=== PATIENT | male | born 1935 | race Caucasian/White ===

== ENCOUNTER 2021-11-24 23:55 | Emergency (ER) | payer MEDICARE ==
[~2021-11-24] VITALS: Ht 170.2 cm; Wt 79.5 kg
--- NOTE | 2021-11-25 00:18 | NUR ---
ASSUMED CARE OF PT. PT ROOMED IN BED 3.
--- NOTE | 2021-11-25 00:23 | NUR ---
CXR IN ROOM
[2021-11-25 01:11] LABS: BASOPHILS # (AUTO) 0.1 X10'3 (0-0.2); EOSINOPHILS # (AUTO) 0.3 X10'3 (0-0.9); HEMATOCRIT 38.2 % (42.0-52.0); HEMOGLOBIN 13.1 g/dl (14.0-17.9); LYMPHOCYTES # (AUTO) 2.4 X10'3 (1.1-4.8); LYMPHOCYTES % (AUTO) 36.5 % (21-51); MEAN CORPUSCULAR HEMOGLOBIN 31.9 PG (27.0-31.0); MEAN CORPUSCULAR HGB CONC 34.3 g/dL (33.0-36.5); MEAN CORPUSCULAR VOLUME 93.1 FL (78-98); MEAN PLATELET VOLUME 8.2 FL (7.4-10.4); MONOCYTES # (AUTO) 0.7 X10'3 (0-0.9); MONOCYTES % (AUTO) 11.1 % (2-12); NEUTROPHILS # (AUTO) 3.1 X10'3 (1.8-7.7); NEUTROPHILS % (AUTO) 47.4 % (42-75); PLATELET COUNT 226 X10'3 (140-440); RED BLOOD COUNT 4.11 X10'6 (4.70-6.10); WHITE BLOOD COUNT 6.5 X10'3 (4.5-11.0)
[2021-11-25 01:25] LABS: ALANINE AMINOTRANSFERASE 21 U/L (12-78); ALBUMIN 3.6 G/DL (3.4-5.0); ALBUMIN/GLOBULIN RATIO 1.1 (1.1-1.5); ALKALINE PHOSPHATASE 60 IU/L (46-116); ANION GAP 6 (8-16); ASPARTATE AMINO TRANSFERASE 14 U/L (10-37); BILIRUBIN,TOTAL 0.4 MG/DL (0.1-1.0); BLOOD UREA NITROGEN 23 MG/DL (7-18); CALCIUM 8.9 MG/DL (8.5-10.1); CHLORIDE 105 MMOL/L (99-107); CREATININE 1.35 MG/DL (0.60-1.10); GLUCOSE 100 MG/DL (70-104); POTASSIUM 4.8 MMOL/L (3.5-5.1); SODIUM 139 MMOL/L (135-145); TOTAL CARBON DIOXIDE 28.2 MMOL/L (24-32); TOTAL PROTEIN 6.9 G/DL (6.4-8.2); eGFR 50 ML/MIN
[2021-11-25 02:01] VITALS: BP 136/62
== END 2021-11-25 02:04 | disposition home or self-care (01) ==
LOC: ER 23:55
DX: I10 Essential (primary) hypertension (principal)
CPT/HCPCS: 36415; 71045; 80053; 83880; 84443; 84484; 85025; 93005; 99285

== ENCOUNTER 2022-12-14 05:57 | Day surgery (SDC) | payer MEDICARE ==
[2022-12-13 11:54] LABS: BASOPHILS # (AUTO) 0.1 X10'3 (0-0.2); BASOPHILS % (AUTO) 0.9 % (0-1); EOSINOPHILS # (AUTO) 0.1 X10'3 (0-0.9); EOSINOPHILS % (AUTO) 1.3 % (0-6); HEMATOCRIT 40.6 % (42.0-52.0); HEMOGLOBIN 13.6 g/dl (14.0-17.9); LYMPHOCYTES # (AUTO) 2.3 X10'3 (1.1-4.8); LYMPHOCYTES % (AUTO) 31.9 % (21-51); MEAN CORPUSCULAR HEMOGLOBIN 31.4 PG (27.0-31.0); MEAN CORPUSCULAR HGB CONC 33.4 g/dL (33.0-36.5); MEAN CORPUSCULAR VOLUME 93.9 FL (78-98); MEAN PLATELET VOLUME 8.6 FL (7.4-10.4); MONOCYTES # (AUTO) 0.5 X10'3 (0-0.9); MONOCYTES % (AUTO) 7.1 % (2-12); NEUTROPHILS # (AUTO) 4.2 X10'3 (1.8-7.7); NEUTROPHILS % (AUTO) 58.8 % (42-75); PLATELET COUNT 224 X10'3 (140-440); RED BLOOD COUNT 4.32 X10'6 (4.70-6.10); RED CELL DISTRIBUTION WIDTH 13.7 % (11.5-14.5); WHITE BLOOD COUNT 7.1 X10'3 (4.5-11.0)
[2022-12-13 12:06] LABS: APTT 26 SECONDS (22-32)
[2022-12-13 12:20] LABS: BLOOD UREA NITROGEN 30 MG/DL (7-18); BUN/CREATININE RATIO 20.7 (5.4-32.0); CALCIUM 8.6 MG/DL (8.5-10.1); CREATININE 1.45 MG/DL (0.60-1.10); GLUCOSE 100 MG/DL (70-104); POTASSIUM 4.9 MMOL/L (3.5-5.1); SODIUM 137 MMOL/L (135-145); TOTAL CARBON DIOXIDE 28.1 MMOL/L (24-32); eGFR 46 ML/MIN
[2022-12-13 13:30] LABS: ANION GAP 5 (8-16); CHLORIDE 104 MMOL/L (99-107)
[~2022-12-14] VITALS: Ht 170.2 cm; Wt 80.3 kg
[2022-12-14] VITALS (21 sets, daily range): BP systolic 104–184; BP diastolic 50–72
[2022-12-14] MEDS ORDERED: diphenhydrAMINE 25mg capsule PO PRN (06:25)
[2022-12-14] MEDS ORDERED: LORazepam 0.5 MG tablet PO PRN (06:25)
[2022-12-14] MEDS ORDERED: sodium bicarbonate (8.4%) inj. 150 ML in dextrose 5%-water 850 ML IV ONE (06:25)
[2022-12-14] MEDS ORDERED: normal saline 1,000 ML IV SCH (06:25)
[2022-12-14] MEDS ORDERED: acetylcysteine 200 MG/ml 4ml vial PO PRN (06:30)
[2022-12-14] MEDS ORDERED: FLO0.4C PO (06:41)
[2022-12-14] MEDS ORDERED: ATOR40TA72 PO (06:41)
[2022-12-14] MEDS ORDERED: LISI20TA28 PO (06:41)
[2022-12-14] MEDS ORDERED: CHOL20004 PO (06:42)
[2022-12-14] MEDS ORDERED: FINA5TAB11 PO (06:45)
[2022-12-14] MEDS ORDERED: nitroGLYCERIN-Tridil 50MG/D5W 250 ML IV ONE (07:31)
[2022-12-14] MEDS ORDERED: iohexol 350 MG/ML 50ML vial IV ONE ×2 (07:32→09:13)
[2022-12-14] MEDS ORDERED: iohexol 350MG/ML 100ml bottle IV ONE ×2 (07:32→08:25)
[2022-12-14] MEDS ORDERED: verapamil 2.5 mg/ml inj IV ONE (07:32)
[2022-12-14] MEDS ORDERED: midazolam 1 mg/ML 2ml injection ONE (07:32)
[2022-12-14] MEDS ORDERED: fentaNYL/PF 50MCG/1 ML 2ML syringe ONE (07:32)
[2022-12-14] MEDS ORDERED: heparin 1,000unit/ml 10ml vial 10 ML ONE (07:32)
[2022-12-14] MEDS ORDERED: LIDOcaine 1% 30ml preserv. free vial ONE (07:33)
[2022-12-14] MEDS ORDERED: hydrALAZINE 20mg/ml inj. IV ONE (08:24)
[2022-12-14] MEDS ORDERED: HEPARIN SOD,PORK IN 0.45% NACL 250 ML IV ONE (08:53)
[2022-12-14] MEDS ORDERED: clopidogrel 300mg tablet ONE (09:16)
[2022-12-14] MEDS ORDERED: acetylcysteine 200 MG/ml 4ml vial PO ONE (14:55)
[2022-12-14] MEDS ORDERED: ticagrelor 90mg tablet PO SCH (20:00)
== END 2022-12-14 18:50 | disposition home or self-care (01) ==
LOC: SSTAY O 05:57
PROVIDERS: ATTEND Internal Medicine Cardiovascular Disease
DX: R07.89 Other chest pain (principal); I25.10 Atherosclerotic heart disease of native coronary artery without angina pectoris; I10 Essential (primary) hypertension; E78.5 Hyperlipidemia, unspecified; J45.909 Unspecified asthma, uncomplicated; N40.0 Benign prostatic hyperplasia without lower urinary tract symptoms; K21.9 Gastro-esophageal reflux disease without esophagitis; I65.29 Occlusion and stenosis of unspecified carotid artery; Z98.890 Other specified postprocedural states; Z79.899 Other long term (current) drug therapy
CPT/HCPCS: 36415; 76937; 80048; 85025; 85347; 85610; 85730; 93005; 93458; 99152; 99153; C1725; C1751; C1769; C1874; C1894; C9600; J0360; J1644; J2250; J3010; J3490; J7030; J7070; Q0163; Q9967; A6258; A6449

== ENCOUNTER 2022-12-16 05:53 | Day surgery (SDC) | payer MEDICARE ==
[~2022-12-16] VITALS: Ht 170.2 cm; Wt 80.4 kg
[2022-12-16] VITALS (12 sets, daily range): BP systolic 100–152; BP diastolic 57–69
[~2022-12-16 05:53] MED LIST: ATOR40TA72 PO; CHOL20004 PO; FINA5TAB11 PO; FLO0.4C PO; LISI20TA28 PO
[2022-12-16] MEDS ORDERED: diphenhydrAMINE 25mg capsule PO PRN (06:15)
[2022-12-16] MEDS ORDERED: LORazepam 0.5 MG tablet PO PRN (06:15)
[2022-12-16] MEDS ORDERED: normal saline 1,000 ML IV SCH (06:15)
[2022-12-16] MEDS ORDERED: ASPI-1397 PO (06:24)
[2022-12-16] MEDS ORDERED: CLOP75TA34 PO (06:24)
[2022-12-16 07:17] LABS: BASOPHILS # (AUTO) 0.1 X10'3 (0-0.2); BASOPHILS % (AUTO) 0.7 % (0-1); EOSINOPHILS # (AUTO) 0.3 X10'3 (0-0.9); EOSINOPHILS % (AUTO) 3.3 % (0-6); HEMATOCRIT 38.3 % (42.0-52.0); HEMOGLOBIN 12.8 g/dl (14.0-17.9); LYMPHOCYTES # (AUTO) 2.4 X10'3 (1.1-4.8); LYMPHOCYTES % (AUTO) 31.3 % (21-51); MEAN CORPUSCULAR HEMOGLOBIN 31.1 PG (27.0-31.0); MEAN CORPUSCULAR HGB CONC 33.5 g/dL (33.0-36.5); MEAN CORPUSCULAR VOLUME 92.7 FL (78-98); MEAN PLATELET VOLUME 8.3 FL (7.4-10.4); MONOCYTES # (AUTO) 0.8 X10'3 (0-0.9); MONOCYTES % (AUTO) 9.8 % (2-12); NEUTROPHILS # (AUTO) 4.2 X10'3 (1.8-7.7); NEUTROPHILS % (AUTO) 54.9 % (42-75); PLATELET COUNT 208 X10'3 (140-440); RED BLOOD COUNT 4.13 X10'6 (4.70-6.10); RED CELL DISTRIBUTION WIDTH 13.4 % (11.5-14.5); WHITE BLOOD COUNT 7.6 X10'3 (4.5-11.0)
[2022-12-16 07:20] LABS: APTT 25 SECONDS (22-32)
[2022-12-16 07:29] LABS: ALBUMIN 3.8 G/DL (3.4-5.0); ANION GAP 6 (8-16); BLOOD UREA NITROGEN 22 MG/DL (7-18); BUN/CREATININE RATIO 15.2 (5.4-32.0); CALCIUM 8.7 MG/DL (8.5-10.1); CHLORIDE 103 MMOL/L (99-107); CREATININE 1.45 MG/DL (0.60-1.10); GLUCOSE 113 MG/DL (70-104); POTASSIUM 4.6 MMOL/L (3.5-5.1); SODIUM 139 MMOL/L (135-145); TOTAL CARBON DIOXIDE 29.6 MMOL/L (24-32); eGFR 46 ML/MIN
[2022-12-16] MEDS ORDERED: nitroGLYCERIN-Tridil 50MG/D5W 250 ML IV ONE (07:35)
[2022-12-16] MEDS ORDERED: heparin 25,000 UNIT/250ml bag 250 ML IV ONE (07:35)
[2022-12-16] MEDS ORDERED: fentaNYL/PF 50MCG/1 ML 2ML syringe ONE (07:35)
[2022-12-16] MEDS ORDERED: verapamil 2.5 mg/ml inj IV ONE (07:35)
[2022-12-16] MEDS ORDERED: LIDOcaine 1% 30ml preserv. free vial ONE (07:36)
[2022-12-16] MEDS ORDERED: midazolam 1 mg/ML 2ml injection ONE (07:36)
[2022-12-16] MEDS ORDERED: iohexol 350MG/ML 100ml bottle IV ONE (07:36)
[2022-12-16] MEDS ORDERED: heparin 1,000unit/ml 10ml vial 10 ML ONE (07:36)
[2022-12-16] MEDS ORDERED: sodium bicarbonate (8.4%) inj. 150 ML in dextrose 5%-water 850 ML IV ONE (07:40)
[2022-12-16] MEDS: acetylcysteine 200 MG/ml 4ml vial PO PRN ×2 (07:51→14:39)
[2022-12-16] MEDS ORDERED: clopidogrel 300mg tablet ONE (08:52)
--- NOTE | 2022-12-16 13:43 | NUR ---
report given to LISANDRA Segovia
== END 2022-12-16 15:05 | disposition home or self-care (01) ==
LOC: SSTAY O 05:53
PROVIDERS: ATTEND Internal Medicine Cardiovascular Disease
DX: I25.10 Atherosclerotic heart disease of native coronary artery without angina pectoris (principal); I10 Essential (primary) hypertension; E78.5 Hyperlipidemia, unspecified; J45.909 Unspecified asthma, uncomplicated; N40.0 Benign prostatic hyperplasia without lower urinary tract symptoms; K21.9 Gastro-esophageal reflux disease without esophagitis; I65.29 Occlusion and stenosis of unspecified carotid artery; Z98.890 Other specified postprocedural states; Z79.899 Other long term (current) drug therapy; Z83.3 Family history of diabetes mellitus; Z82.49 Family history of ischemic heart disease and other diseases of the circulatory system
CPT/HCPCS: 36415; 76937; 80048; 85025; 85347; 85610; 85730; 93005; 93458; 99152; 99153; C1725; C1751; C1769; C1874; C1894; C9600; J1644; J2250; J3010; J3490; J7030; Q0163; Q9967; A6258; A6402

== ENCOUNTER 2024-03-11 20:44 | Emergency (ER) | payer MEDICARE ==
[~2024-03-11] VITALS: Ht 170.2 cm; Wt 77.3 kg
[~2024-03-11 20:44] MED LIST changes: +ASPI-1397 PO; +CLOP75TA34 PO
[2024-03-11 20:47] VITALS: TEMP 98.5
[2024-03-11] MEDS: TETanus/Pertussis (Acell)/Diphther VAC/PF (Tdap-Adult) 0.5ml syringe IMVAC ONE (22:08)
[2024-03-11 22:17] VITALS: BP 145/89; PULSE 86; RESP 20; O2SAT 100
== END 2024-03-11 22:19 | disposition home or self-care (01) ==
LOC: ER 20:45
DX: S61.211A Laceration without foreign body of left index finger without damage to nail, initial encounter (principal); I10 Essential (primary) hypertension; W26.8XXA Contact with other sharp object(s), not elsewhere classified, initial encounter; Y93.G3 Activity, cooking and baking; Y92.89 Other specified places as the place of occurrence of the external cause; Y99.8 Other external cause status
CPT/HCPCS: 12001; 90471; 90715; 99283